=== PATIENT | male | born 1945 | race Caucasian/White ===

== ENCOUNTER → 2019-09-25 | Outpatient (CLI) | payer MEDICARE | LOC: SLEEP 19:36 | PROVIDERS: ATTEND Internal Medicine | DX: R06.83 Snoring (principal); G47.33 Obstructive sleep apnea (adult) (pediatric); I48.0 Paroxysmal atrial fibrillation; E66.01 Morbid (severe) obesity due to excess calories | CPT/HCPCS: 95810 ==

== ENCOUNTER → 2019-11-07 | Outpatient (CLI) | payer MEDICARE ==
--- NOTE | 2019-11-12 05:39 | Polysomnography ---
DATE OF STUDY: REFERRING PHYSICIAN: STUDY PERFORMED: Polysomnogram. Patient of Dr. Vazquez. INDICATIONS: The patient with a history of obstructive sleep apnea. The patient's BMI is 35.2. Sleep efficiency was 80%. DESCRIPTION: He was monitored using standard EEG lead montage including electro-oculogram, submentalis EMG, anterior tibialis EMG, nasal and oral thermistors, ribcage and abdominal strain gauge, monitor pulse oximeter, and EKG monitoring. The patient was titrated to a level of 23/18. Apneas and hypopneas were largely eliminated, but not complete. It was recommended that the patient be given a home trial of nasal BiPAP at a level of 23/18. Heated humidification was recommended to improve the patient's comfort and compliance. He was fitted with a full-face nasal mask ResMed AirFit F20. It was recommended that he be given a pressure of 24/19. REM rebound was noted during the study. MD JESUS Lovell/MODL /[id number]
== END ==
LOC: SLEEP 20:39
PROVIDERS: ATTEND Internal Medicine
DX: G47.33 Obstructive sleep apnea (adult) (pediatric) (principal)
CPT/HCPCS: 95811

== ENCOUNTER → 2021-05-24 | Day surgery (SDC) | payer MEDICARE ==
[2021-05-20 14:39] LABS: BASOPHILS # (AUTO) 0.1 (0.0-0.1); BASOPHILS % 0.9 % (0.0-1.0); EOSINOPHILS # (AUTO) 0.1 (0.0-0.4); HEMATOCRIT 41.9 % (38.2-49.6); HEMOGLOBIN 14.1 g/dL (14.0-18.0); LYMPHOCYTES # (AUTO) 2.1 (1.0-3.2); LYMPHOCYTES % 26.6 % (18.0-39.1); MEAN CORPUSCULAR HEMOGLOBIN 31.5 pg (28-32); MEAN CORPUSCULAR HGB CONC 33.7 g/dL (31-35); MEAN CORPUSCULAR VOLUME 93.7 fL (81-99); MONOCYTES # (AUTO) 0.5 (0.2-0.8); MONOCYTES % 6.9 % (4.4-11.3); NEUTROPHILS % 64.2 % (38.7-80.0); PLATELET COUNT 94 x10e3/uL (140-360); RED BLOOD COUNT 4.47 x10e6/uL (4.3-5.7); RED CELL DISTRIBUTION WIDTH 13.4 % (11.7-14.4)
[~2021-05-24] MED LIST: BYSTOLIC10 MG PO; ELIQUIS2.5 MG PO; FUROSEMIDE40 MG PO; HYDRALAZINE HCL50 MG PO; IRBESARTAN-HCT1 EAC1 PO; MINIPRESS5 MG PO; MONTELUKAST SOD10 MG PO; POTASSIUM CHLO20 ME1 PO; PROPAFENONE HC325 MG PO; PROPOFOL IV EMULSION 10 MG/ML 20 ML VIAL ONE; SIMVASTATIN20 MG PO
[2021-05-24 09:00] VITALS: BP 156/80
== END | disposition home or self-care (01) ==
LOC: OR 06:24
PROVIDERS: ATTEND Internal Medicine Gastroenterology
DX: Z12.11 Encounter for screening for malignant neoplasm of colon (principal); K57.30 Diverticulosis of large intestine without perforation or abscess without bleeding; K21.9 Gastro-esophageal reflux disease without esophagitis; Z71.3 Dietary counseling and surveillance; G47.33 Obstructive sleep apnea (adult) (pediatric); E66.9 Obesity, unspecified; D69.6 Thrombocytopenia, unspecified; I10 Essential (primary) hypertension; E78.5 Hyperlipidemia, unspecified; I48.91 Unspecified atrial fibrillation; Z88.2 Allergy status to sulfonamides; Z91.041 Radiographic dye allergy status; Z01.810 Encounter for preprocedural cardiovascular examination; Z01.812 Encounter for preprocedural laboratory examination; Z68.33 Body mass index [BMI] 33.0-33.9, adult; Z95.0 Presence of cardiac pacemaker; Z87.01 Personal history of pneumonia (recurrent); Z87.891 Personal history of nicotine dependence; Z83.71 Family history of colonic polyps
CPT/HCPCS: 36415; 85025; 93005; G0121; J2704; 45378